=== PATIENT | male | born 1930 | race Caucasian/White ===

== ENCOUNTER 2016-08-21 16:42 | Emergency (ER) | payer MEDICARE, BC ==
--- NOTE | 2016-08-21 17:06 | Emergency Department Record ---
History of Present Illness - General Chief Complaint: Laceration(s) Stated Complaint: LAC ON R LEG Time Seen by Provider: 08/21/16 17:00 Source: Patient, Family Mode of Arrival: Wheelchair Limitations: No limitations - History of Present Illness Initial Commments: 86 yo male presents with 2 skin tears to the RLE from Saturday. he has had some continued bleeding from one site and clear drainage from the other. No fevers. No pus. No redness or abnormal warmth. No fevers or chills. He has chronic lower extremity edema. Onset/Timin -: Days(s) Extremity Location: Right: Lower leg Place: Home Context: Accidental Associated Symptoms: None Treatments Prior to Arrival: Bandage - [place] Coma Scale Eye Response: (4) Open spontaneously Motor Response: (6) Obeys commands Verbal Response: (5) Oriented [place] Total: 15 - Related Data Hx Tetanus Toxoid Vaccination: No Home Medications Medication Instructions Recorded Confirmed Last Taken Albuterol Sulfate [Ventolin Hfa] 8 gm INH Q8HR 10/10/13 08/21/16 08/21/16 Alendronate Sodium 10 mg PO DAILY 10/10/13 08/21/16 08/21/16 Aspirin Chewable 81 mg PO DAILY 10/10/13 08/21/16 08/21/16 Cetirizine HCl [Zyrtec] 10 mg PO ASDIR PRN 10/10/13 08/21/16 08/21/16 Cholecalciferol (Vitamin D3) 1,000 unit PO DAILY 10/10/13 08/21/16 08/21/16 [Vitamin D3] Dextran 70/Hypromellose 15 ml OP BID 10/10/13 08/21/16 08/21/16 [Artificial Tears Eye Drops] Fluticasone Propionate [Flonase] 16 gm NS DAILY 10/10/13 08/21/16 08/21/16 Furosemide [Lasix] 20 mg PO DAILY 10/10/13 08/21/16 08/21/16 Ipratropium [place] [Atrovent Hfa] 12.9 gm IH DAILY 10/10/13 08/21/16 08/21/16 Ipratropium [place] [Atrovent] 15 ml NS BID 10/10/13 08/21/16 08/21/16 Ipratropium/Albuterol [Duoneb] 3 ml IH Q4HR 10/10/13 08/21/16 08/21/16 Losartan Potassium [Cozaar] 50 mg PO DAILY 10/10/13 08/21/16 08/21/16 Omeprazole [Prilosec] 40 mg PO DAILY 10/10/13 08/21/16 08/21/16 Pravastatin Sodium [Pravachol] 80 mg PO DAILY 10/10/13 08/21/16 08/21/16 Ubidecarenone/Vitamin E Mixed 300 mg PO DAILY 10/10/13 08/21/16 08/21/16 [Coenzyme Q10 200 mg Caps] Fluticasone Propionate [Flovent 12 gm IH BIDINS 10/11/13 08/21/16 08/21/16 Hfa] Previous Rx's Medication Instructions Recorded Levofloxacin [Levaquin] 500 mg PO DAILY #7 ml 10/12/13 Prednisone [Prednisone 10Mg] 10 mg PO DAILY #30 tab 10/12/13 Allergies Allergy/AdvReac Type Severity Reaction Status Date / Time Beta-Blockers Allergy Unknown DIFFICULTY Verified 08/21/16 16:53 (Beta-Adrenergic Bloc BREATHING [BETA-BLOCKERS (BETA-ADRENERGIC BLOC] Calcium Channel Blocking Allergy Unknown HYPERSENSIT Verified 08/21/16 16:53 Agent Dilt IVITY [CALCIUM CHANNEL BLOCKING AGENTS-CY] diltiazem [DILTIAZEM] Allergy Unknown HYPERSENSIT Verified 08/21/16 16:53 IVITY tiotropium bromide Allergy BODY ACHES Verified 08/21/16 16:53 [From Spiriva with HandiHaler] lisinopril AdvReac ABDOMINAL Verified 08/21/16 16:55 PAIN salmeterol xinafoate AdvReac RAPID Verified 08/21/16 16:53 [From Serevent] HEART RATE simvastatin AdvReac general Verified 08/21/16 16:55 fatigued verapamil AdvReac low blood Verified 08/21/16 16:55 pressure Travel Screening - Travel/Exposure Within Last 30 Days Have you traveled within the last 30 days?: No Review of Systems Constitutional: Denies: Chills, Fever, Weakness Eyes: Denies: Eye discharge ENT: Denies: Congestion, Throat pain Respiratory: Reports: Wheezes (chronic). Denies: Cough, Dyspnea Cardiovascular: Reports: As per HPI, Edema. Denies: Chest pain, Palpitations, Syncope Endocrine: Denies: Fatigue Gastrointestinal: Denies: Abdominal pain, Diarrhea, Nausea, Vomiting Genitourinary: Denies: Hematuria Musculoskeletal: Denies: Arthralgia, Back pain, Myalgia Skin: Denies: Bruising, Change in color, Rash Neurological: Denies: Headache Psychiatric: Denies: Anxiety Hematological/Lymphatic: Denies: Blood Clots, Easy bleeding, Easy bruising Past Medical History - SOCIAL HISTORY Smoking Status: Former smoker Alcohol Use: None Drug Use: None - RESPIRATORY Hx Respiratory Disorders: Yes Hx COPD: Yes - CARDIOVASCULAR Hx Cardio Disorders: Yes Hx Abnormal EKG: Yes Hx Cardiac Cath: Yes (2008) Hx CHF: Yes Hx Heart Attack: Yes Hx Hypertension: Yes Hx Irregular Heartbeat: Yes (SVT, PVCs) - NEURO Hx Neuro Disorders: No - GI Hx GI Disorders: Yes Hx Diverticulitis: Yes Hx Pancreatitis: Yes - Hx Genitourinary Disorders: No - ENDOCRINE Hx Endocrine Disorders: No - MUSCULOSKELETAL Hx Musculoskeletal Disorders: Yes Hx Osteoporosis: Yes - PSYCH Hx Psych Problems: No - HEMATOLOGY/ONCOLOGY Hx Hematology/Oncology Disorders: Yes Hx Cancer: Yes (Squamous - lip) Hx Chemotherapy: No Hx Radiation Therapy: Yes Family Medical History Any Significant Family History?: Yes Hx Cancer: Mother Hx Dementia: Brother/Sister Hx HTN: Father, Mother Physical Exam - General General Appearance: Alert, Oriented x3, Cooperative, No acute distress Limitations: No limitations - Head Head exam: Normal inspection - Eye Eye exam: Normal appearance - ENT ENT exam: Normal exam Ear exam: Normal external inspection Nasal Exam: Normal inspection Mouth exam: Normal external inspection - Neck Neck exam: Normal inspection - Cardiovascular Cardiovascular Exam: Regular rate, Normal rhythm, Normal heart sounds - Rectal Rectal exam: Deferred - exam: Deferred - Extremities Extremities exam: Pedal edema (bialteral with chronic skin changes). negative: Normal inspection Image of Full Body: 1 - 2cm superficial skin tear, no pus, no erythema 2 - 1cm superficial skin tear with slight oozing - Neurological Neurological exam: Alert, Oriented X3 - Psychiatric Psychiatric exam: Normal affect, Normal mood - Skin Skin exam: Other (skin tears as noted above) Course Vital Signs 08/21/16 16:45 Temperature 97.4 F L Pulse Rate 55 L Respiratory 20 Rate Blood Pressure 137/92 Pulse Ox 90 L - Reevaluation(s) Reevaluation #1: Both wounds were cleaned and irrigated The 2cm skin tear was brought together with steristrips with good results The 1cm skin tear had a patch of gelfoam placed and steristrip to secure it in place Tolerated well Home instructions provided as well and follow up and reasons to return to the ED 08/21/16 17:03 Disposition Disposition: Discharge Clinical Impression: Skin tear Disposition: Home, Self-Care Condition: (1) Good Instructions: Skin Tear (ED) Additional Instructions: Call your doctor for close follow up Return if you have pain, redness, pus, fever or concerns Leave the steristrip on for 5 to 7 days and the patch on 2 days. Forms: Patient Portal Access Time of Disposition: 17:06
== END 2016-08-21 17:22 | disposition home or self-care (01) ==
LOC: ER 16:42
DX: S80.811A Abrasion, right lower leg, initial encounter (principal); W22.8XXA Striking against or struck by other objects, initial encounter; Y92.009 Unspecified place in unspecified non-institutional (private) residence as the place of occurrence of the external cause
CPT/HCPCS: 99283

== ENCOUNTER 2017-07-26 15:49 | Observation (INO) | payer MEDICARE, BC ==
[2017-07-26 16:51] LABS: BASO % 0.3 % (0-6); EOS % 1.3 % (0-6); GRAN % 71.6 % (47-80); HEMATOCRIT 49.4 % (42.0-52.0); HEMOGLOBIN 16.9 gm/dl (14.0-18.0); LYMPH % 17.6 % (16-45); MEAN CELL VOLUME 96.1 fl (81-97); MEAN CORPUSCULAR HEMOGLOBIN 32.9 pg (27-33); MEAN CORPUSCULAR HGB CONC 34.2 g/dl (32-36); MONO % 9.2 % (0-9); PLATELET COUNT 202 K/uL (130-400); RED BLOOD COUNT 5.14 M/uL (4.40-5.70); RED CELL DISTRIBUTION WIDTH 13.7 % (11.5-14.5); WHITE BLOOD COUNT W/O DIFF 11.2 K/uL (4.2-12.2)
--- NOTE | 2017-07-26 17:33 | Emergency Department Record ---
History of Present Illness - General Chief Complaint: Syncope Stated Complaint: FALL INJURY Time Seen by Provider: 07/26/17 16:17 Source: Patient, Family Mode of Arrival: Ambulatory Limitations: No limitations - History of Present Illness Initial Comments: pt had a syncopal spell this afternoon. he said he was standing and felt a little lightheaded and the next thing he knew he was on the floor after hitting his head and hurting his r ribs. his said he woke up immediately and had no shaking of the extremities. he c/o pain in his head and r ribs Complaint: Loss of consciousness Onset/Timin -: Hour(s) Prodromal Symptoms: Lightheaded Description of Event: Other -: Second(s) Witnessed: Yes - by bystander Injuries Sustained Associated with Event: Head Current Symptoms: Headache, Other Treatments Prior to Arrival: None - [place] Coma Scale Eye Response: (4) Open spontaneously Motor Response: (6) Obeys commands Verbal Response: (5) Oriented [place] Total: 15 - Related Data Home Medications Medication Instructions Recorded Confirmed Last Taken Docusate Sodium [Colace] 100 mg PO DAILY 07/26/17 07/26/17 Unknown Fexofenadine HCl [Mónica Allergy] 180 mg PO DAILY 07/26/17 07/26/17 1 Day Ago ~07/25/17 Potassium Chloride [Klor-Con] 5 meq PO DAILY 07/26/17 07/26/17 1 Day Ago ~07/25/17 Simethicone [Gas-X] 125 mg PO QID PRN 07/26/17 07/26/17 Unknown Zolpidem Tartrate [Ambien] 10 mg PO QHS 07/26/17 07/26/17 1 Day Ago ~07/25/17 Allergies Allergy/AdvReac Type Severity Reaction Status Date / Time Beta-Blockers Allergy Unknown DIFFICULTY Verified 07/26/17 16:27 (Beta-Adrenergic Bloc BREATHING [BETA-BLOCKERS (BETA-ADRENERGIC BLOC] Calcium Channel Blocking Allergy Unknown HYPERSENSIT Verified 07/26/17 16:27 Agent Dilt IVITY [CALCIUM CHANNEL BLOCKING AGENTS-CY] diltiazem [DILTIAZEM] Allergy Unknown HYPERSENSIT Verified 07/26/17 16:27 IVITY tiotropium bromide Allergy BODY ACHES Verified 07/26/17 16:27 [From Spiriva with HandiHaler] lisinopril AdvReac ABDOMINAL Verified 07/26/17 16:27 PAIN salmeterol xinafoate AdvReac RAPID Verified 07/26/17 16:27 [From Serevent] HEART RATE simvastatin AdvReac general Verified 07/26/17 16:27 fatigued verapamil AdvReac low blood Verified 07/26/17 16:27 pressure Travel Screening - Travel/Exposure Within Last 30 Days Have you traveled within the last 30 days?: No - Travel/Exposure Within Last Year Have you traveled outside the [place] in the last year?: No - Additonal Travel Details Have you been exposed to anyone with a communicable illness?: No - Travel Symptoms Symptom Screening: None Review of Systems Reviewed: No additional complaints except as noted below Constitutional: Reports: As per HPI. Denies: Chills, Fever, Malaise, Night sweats, Weakness, Weight change Eyes: Reports: As per HPI. Denies: Eye discharge, Eye pain, Photophobia, Vision change ENT: Reports: As per HPI. Denies: Congestion, Dental pain, Ear pain, Epistaxis , Hearing loss, Throat pain Respiratory: Reports: As per HPI. Denies: Cough, Dyspnea, Hemoptysis, Stridor, Wheezes Cardiovascular: Reports: As per HPI, Palpitations. Denies: Arrhythmia, Chest pain, Dyspnea on exertion, Edema, Murmurs, Orthopnea, Paroxysmal nocturnal dyspnea, Rheumatic Fever, Syncope Endocrine: Reports: As per HPI. Denies: Fatigue, Heat or cold intolerance, Polydipsia, Polyuria Gastrointestinal: Reports: As per HPI. Denies: Abdominal pain, Constipation, Diarrhea, Hematemesis, Hematochezia, Melena, Nausea, Vomiting Genitourinary: Reports: As per HPI. Denies: Dysuria, Frequency, Hematuria, Incontinence, Retention, Testicular pain, Testicular mass, Urgency Musculoskeletal: Reports: As per HPI. Denies: Arthralgia, Back pain, Gout, Joint swelling, Myalgia, Neck pain Skin: Reports: As per HPI. Denies: Bruising, Change in color, Change in hair/ nails, Lesions, Pruritus, Rash Neurological: Reports: As per HPI. Denies: Abnormal gait, Confusion, Headache, Numbness, Paresthesias, Seizure, Tingling, Tremors, Vertigo, Weakness Psychiatric: Reports: As per HPI. Denies: Anxiety, Auditory hallucinations, Depression, Homicidal thoughts, Suicidal thoughts, Visual hallucinations Hematological/Lymphatic: Reports: As per HPI. Denies: Anemia, Blood Clots, Easy bleeding, Easy bruising, Swollen glands Past Medical History - SOCIAL HISTORY Smoking Status: Former smoker Alcohol Use: None Drug Use: None - RESPIRATORY Hx Respiratory Disorders: Yes Hx COPD: Yes - CARDIOVASCULAR Hx Cardio Disorders: Yes Hx Abnormal EKG: Yes Hx Cardiac Cath: Yes (2008) Hx CHF: Yes Hx Heart Attack: Yes Hx Hypertension: Yes Hx Irregular Heartbeat: Yes (SVT, PVCs) - NEURO Hx Neuro Disorders: No - GI Hx GI Disorders: Yes Hx Diverticulitis: Yes Hx Pancreatitis: Yes - Hx Genitourinary Disorders: No - ENDOCRINE Hx Endocrine Disorders: No Hx Diabetes: No Hx Thyroid Disease: No - MUSCULOSKELETAL Hx Musculoskeletal Disorders: Yes Hx Osteoporosis: Yes - PSYCH Hx Psych Problems: No - HEMATOLOGY/ONCOLOGY Hx Hematology/Oncology Disorders: Yes Hx Cancer: Yes (Squamous - lip) Hx Chemotherapy: No Hx Radiation Therapy: Yes Family Medical History Any Significant Family History?: Yes Hx Cancer: Mother Hx Dementia: Brother/Sister Hx HTN: Father, Mother Physical Exam - General General Appearance: Alert, Oriented x3, Cooperative, Mild distress - Head Head exam: Normal inspection Head exam detail: Abrasion, Contusion, Hematoma, Laceration - Eye Eye exam: Normal appearance, PERRL, EOMI Pupils: Normal accommodation - ENT ENT exam: Normal exam, Mucous membranes moist, Normal external ear exam, Normal orophraynx Ear exam: Normal external inspection. negative: External canal tenderness Nasal Exam: Normal inspection. negative: Discharge, Sinus tenderness Mouth exam: Normal external inspection, Tongue normal Teeth exam: Normal inspection. negative: Dental caries Throat exam: Normal inspection. negative: Tonsillar erythema, Tonsillar exudate - Neck Neck exam: Normal inspection, Full ROM. negative: Tenderness - Respiratory Respiratory exam: Normal lung sounds bilaterally. negative: Respiratory distress - Cardiovascular Cardiovascular Exam: Regular rate, Normal rhythm, Normal heart sounds - GI/Abdominal GI/Abdominal exam: Soft, Normal bowel sounds. negative: Tenderness - Rectal Rectal exam: Deferred - exam: Deferred - Extremities Extremities exam: Full ROM, Normal capillary refill, Tenderness Image of Full Body: 1 - ecchymosis 2 - ecchymosis 3 - laceration - Back Back exam: Reports: Normal inspection, Full ROM. Denies: Muscle spasm, Rash noted, Tenderness - Neurological Neurological exam: Alert, Normal gait, Oriented X3, Reflexes normal - Psychiatric Psychiatric exam: Normal affect, Normal mood - Skin Skin exam: Dry, Intact, Normal color, Warm Course Vital Signs 07/26/17 16:18 Temperature 97.5 F L Pulse Rate 68 Respiratory 20 Rate Blood Pressure 136/110 Pulse Ox 92 L Medical Decision Making - Lab Data Result diagrams: 07/26/17 15:35 07/26/17 15:35 Lab Results 07/26/17 Range/Units 15:35 WBC 11.2 (4.2-12.2) K/uL RBC 5.14 (4.40-5.70) M/uL Hgb 16.9 (14.0-18.0) gm/dl Hct 49.4 (42.0-52.0) % MCV 96.1 (81-97) fl MCH 32.9 (27-33) pg MCHC 34.2 (32-36) g/dl RDW 13.7 (11.5-14.5) % Plt Count 202 (130-400) K/uL MPV 10.0 (7.4-10.4) fl Gran % 71.6 (47-80) % Lymphocytes % 17.6 (16-45) % Monocytes % 9.2 H (0-9) % Eosinophils % 1.3 (0-6) % Basophils % 0.3 (0-6) % Disposition Disposition: Admit Clinical Impression: PVC's (premature ventricular contractions), Laceration Syncope Qualifiers: Syncope type: unspecified Qualified Code(s): R55 - Syncope and collapse Head injury due to trauma Qualifiers: Encounter type: initial encounter Qualified Code(s): S09.90XA - Unspecified injury of head, initial encounter Disposition: Still a Patient at [facility] Decision to Admit: Admit from ER Decision to Admit Date: 07/26/17 Decision to Admit Time: 20:48 Forms: Patient Portal Access Quality - Quality Measures Quality Measures: N/A - Blood Pressure Screening Does Patient Have Any of the Following: Active Dx of HTN Blood Pressure Classification: Hypertensive Reading Systolic Measurement: 136 Diastolic Measurement: 110 Screening for High Blood Pressure: Patient Exclusion, Hx of HTN [G9744] Laceration - Head - Time Out Informed consent:: Informed consent obtained Confirmed first & last name, , procedure, correct site?: Yes - Location Location of laceration:: Left Laceration located on:: Face Length of laceration:: 3 Length of laceration:: cm Face/Head: 1 - 3cm lac - Clean and Prep Laceration cleaning method:: Cleansed Laceration cleaning agent:: Normal Saline - Topical Anesthetic Lidocaine dose:: 1 mL Lidocaine used:: 1% - Medication Medicated for procedure?: No - Procedural Detail Tissue detail:: Torn Foreign body in the wound?: No Undermining was preformed?: No Stent applied?: No [place] applied?: No Total number of poli:: 5 (simple interrupted sutures)
[2017-07-26 18:13] LABS: ALKALINE PHOSPHATASE 53 U/L (40-129); ALT/SGPT 13 U/L (<41); AST/SGOT 19 U/L (10.0-50.0); BLOOD UREA NITROGEN 23 mg/dL (8-23); CREATININE 0.6 mg/dL (0.7-1.2); EST GLOMERULAR FILTRATION RATE > 60 mL/min; GLUCOSE,RANDOM 93 mg/dL (74-109); TOTAL PROTEIN 6.6 g/dL (6.6-8.7)
[2017-07-26 18:15] LABS: CKMB 5.5 ng/mL (<6.73)
[2017-07-26 18:18] LABS: BILIRUBIN,DIRECT < 0.2 mg/dL (0-0.3)
[2017-07-26 19:04] LABS: URINE APPEARANCE CLEAR; URINE BILIRUBIN NEGATIVE (NEGATIVE); URINE BLOOD NEGATIVE (NEGATIVE); URINE COLOR YELLOW; URINE GLUCOSE (UA) NEGATIVE (NEGATIVE); URINE KETONE NEGATIVE (NEGATIVE); URINE LEUKOCYTE ESTERASE NEGATIVE (NEGATIVE); URINE NITRITE NEGATIVE (NEGATIVE); URINE PROTEIN NEGATIVE (NEGATIVE); URINE UROBILINOGEN 0.2 E.U./dL (0.20 - 1.00)
[2017-07-26] MEDS ORDERED: ACETAMINOPHEN 325 MG TAB PO PRN (21:54)
[2017-07-26] MEDS ORDERED: ATORVASTATIN 20 MG TABLET PO SCH (22:00)
[2017-07-26] MEDS ORDERED: ALBUTEROL HFA 8 GM INHALER INH SCH (22:00)
[2017-07-26] MEDS ORDERED: FLUTICASONE PROPIONATE IH SCH (22:00)
[2017-07-26] MEDS ORDERED: LOSARTAN POTASSIUM 25 MG TABLET PO SCH (23:30)
[2017-07-27] MEDS ORDERED: PANTOPRAZOLE SODIUM 40 MG TABLET PO SCH (07:00)
--- NOTE | 2017-07-27 07:50 | Discharge Note ---
VTE H&P Assessment - Risk for VTE Risk for VTE: Yes Risk Level: Moderate Risk Assessment Date: 07/27/17 Risk Assessment Time: 07:49 VTE Orders Placed or Will Be Placed: Yes Discharge Medications - Discharge Medications Home Medications: Ambulatory Orders Albuterol Sulfate [Ventolin Hfa] 2 puff INH Q8HR 10/10/13 [Last Taken 1 Day Ago ~07/25/17] Aspirin Chewable 81 mg PO DAILY 10/10/13 [Last Taken 1 Day Ago ~07/25/17] Cholecalciferol (Vitamin D3) [Vitamin D3] 1,000 unit PO DAILY 10/10/13 [Last Taken 1 Day Ago ~07/25/17] Dextran 70/Hypromellose [Artificial Tears Eye Drops] 15 ml OP BID 10/10/13 [ Last Taken 1 Day Ago ~07/25/17] Fluticasone Propionate [Flonase] 1 spray NS DAILY 10/10/13 [Last Taken 1 Day Ago ~07/25/17] Furosemide [Lasix] 20 mg PO DAILY 10/10/13 [Last Taken 1 Day Ago ~07/25/17] Ipratropium [place] [Atrovent Hfa] 4 puff IH TID 10/10/13 [Last Taken 1 Day Ago ~07/25/17] Ipratropium [place] [Atrovent] 2 spray NS BID 10/10/13 [Last Taken 1 Day Ago ~] Ipratropium/Albuterol [Duoneb] 3 ml IH DAILY 10/10/13 [Last Taken 1 Day Ago ~] Losartan Potassium [Cozaar] 25 mg PO DAILY 10/10/13 [Last Taken 1 Day Ago ~07/25] Omeprazole [Prilosec] 40 mg PO DAILY 10/10/13 [Last Taken 1 Day Ago ~07/25/17] Pravastatin Sodium [Pravachol] 80 mg PO DAILY 10/10/13 [Last Taken 1 Day Ago ~] Ubidecarenone/Vitamin E Mixed [Coenzyme Q10 200 mg Caps] 300 mg PO DAILY [Last Taken 1 Day Ago ~07/25/17] Fluticasone Propionate [Flovent Hfa] 2 puff IH BID 10/11/13 [Last Taken 1 Day Ago ~07/25/17] Docusate Sodium [Colace] 100 mg PO DAILY 07/26/17 [Last Taken Unknown] Fexofenadine HCl [Mónica Allergy] 180 mg PO DAILY 07/26/17 [Last Taken 1 Day Ago ~07/25/17] Potassium Chloride [Klor-Con] 5 meq PO DAILY 07/26/17 [Last Taken 1 Day Ago ~] Simethicone [Gas-X] 125 mg PO QID PRN 07/26/17 [Last Taken Unknown] Zolpidem Tartrate [Ambien] 10 mg PO QHS 07/26/17 [Last Taken 1 Day Ago ~07/25/17 ] Discharge Note - Date Date of Discharge Note: 07/27/17 Disposition: Home, Self-Care Condition: (1) Good Additional Instructions: follow up with Dr. Atkinson in one week wear holtor monitor Drink more water Referrals: KANU ATKINSON [Primary Care Provider] - Forms: Patient Portal Access Activity at Discharge: Increase Activity as Tolerated Diet at Discharge: Low Salt Diet
[2017-07-27] MEDS ORDERED: FLUTICASONE 200 MCG INH SCH (10:00)
[2017-07-27] MEDS ORDERED: FUROSEMIDE 20 MG TABLET PO SCH (10:00)
[2017-07-27] MEDS ORDERED: ASPIRIN 81 MG CHEWABLE TABLET PO SCH (10:00)
[2017-07-27] MEDS ORDERED: ENOXAPARIN 30 MG/0.3 ML SYR SQ SCH (10:00)
[2017-07-27] MEDS ORDERED: DOCUSATE SODIUM 100 MG CAPSULE PO SCH (10:00)
[2017-07-27] MEDS ORDERED: IPRATROPIUM/ALBUTEROL (0.5MG/3MG) NEB INH SCH (10:00)
[2017-07-27] MEDS ORDERED: POTASSIUM CHLORIDE 10 MEQ TAB PO SCH (10:00)
[2017-07-27] MEDS: IPRATROPIUM/ALBUTEROL (0.5MG/3MG) NEB INH SCH ×2 (10:11→14:58)
--- NOTE | 2017-07-27 16:14 | CT SCAN REPORT ---
DATE: 07/26/2017 at 4:56 p.m. EXAM: HEAD CT SCAN WITHOUT CONTRAST. HISTORY: The patient fell with a syncopal episode and hit his head. TECHNIQUE: Axial CT scan of the head was performed without intravenous contrast. COMPARISON: None. ENCOUNTER: Initial. FINDINGS: No definite acute intracranial hemorrhage identified. No focal mass effect or midline shift apparent. Moderate generalized atrophy with some chronic-appearing deep white matter changes, nonspecific but likely representing some chronic small-vessel deep white matter ischemic disease. No definite acute infarct or intracranial mass lesion seen. Some mild soft tissue swelling in the scalp of the left frontoparietal region. No definite underlying calvarial fracture identified. Probable small cyst or polyp on the medial wall of the right maxillary antrum. IMPRESSION: 1. GENERALIZED ATROPHY WITH CHRONIC-APPEARING DEEP WHITE MATTER CHANGES. 2. SOME SOFT TISSUE SWELLING ON THE SCALP OF THE LEFT FRONTOPARIETAL REGION. 3. NO ACUTE INTRACRANIAL HEMORRHAGE OR FOCAL MASS EFFECT EVIDENT. JOB NUMBER: [id number] MTDD
--- NOTE | 2017-07-28 10:39 | RADIOLOGY REPORT ---
DATE: 07/26/2017 at 5:11 p.m. EXAM: RIGHT RIBS WITH PA CHEST. HISTORY: The patient fell today with pain in the right lower ribs. TECHNIQUE: AP and oblique views of the right ribs and PA of the chest. COMPARISON: No prior rib series. A two-view chest x-ray dated 10/10/2013. ENCOUNTER: Initial. FINDINGS: Diffuse osteopenia is seen consistent with osteoporosis. This somewhat limits evaluation of the ribs. However, no definite fracture of the right ribs is identified. On the chest x-ray, the patient is seen to be postoperative sternotomy, probably with abandoned epipericardial pacer wires. The lungs also appear hyperinflated suggesting chronic obstructive pulmonary disease, probably with some bullous disease in the upper lungs, and some mild fibrosis in the bases. No definite pneumothorax or pleural effusion evident. Calcification and torsion of the aorta. IMPRESSION: 1. OSTEOPOROSIS. 2. NO DEFINITE RIGHT RIB FRACTURE IDENTIFIED. 3. HYPERINFLATION CONSISTENT WITH CHRONIC OBSTRUCTIVE PULMONARY DISEASE. 4. POSTOPERATIVE STERNOTOMY. JOB NUMBER: [id number] [facility]
--- NOTE | 2017-07-28 11:27 | CT ANGIOGRAM REPORT ---
DATE: 07/26/2017 at 7:31 p.m. EXAM: CT ANGIOGRAM OF THE CHEST FOR PULMONARY EMBOLUS WITH POSTPROCESSING. HISTORY: Syncope with a high D-dimer. Possible pulmonary embolus. TECHNIQUE: CT angiogram of the chest performed following the intravenous administration of 90 mL of Omnipaque 350 as the intravenous contrast. Postprocessing on an independent workstation was performed with multiple 3D maximum-intensity projection series obtained. COMPARISON: No prior chest CT. Comparison is made with the chest x-ray as part of the rib series from today. FINDINGS: No definite pulmonary embolus identified. No thoracic aortic aneurysm or dissection identified. The patient is postoperative sternotomy. Coronary artery calcification is present. The posterior-most aspect of the lower hemithoraces is not included on the field of view, but as visualized no pleural effusion is seen and no pericardial effusion is evident. No hilar or mediastinal adenopathy is identified. The patient is probably postoperative cholecystectomy, and there is some air in the liver which is presumably within the biliary tree related to this surgery. Clinical correlation to confirm cholecystectomy is suggested as the gallbladder fossa is only barely included on the lower-most image. Centrilobular emphysema is present. A 4.4 mm nodule in the right upper lobe is seen in image 55 of 135. There are a couple of other tinier nodules seen scattered about the right lung. There is also a small nodule in the left upper lobe approximately 4.4 mm in size on image 43 of 135. Follow-up chest CT in six months' time is suggested to reassess. There is a small focus of pleural- based infiltrate about 16 mm in size along the right lower lung laterally. This has progressed from a small, faint patch of alveolar density on the prior abdomen CT of 04/03/2016. This is nonspecific and could be inflammatory or neoplastic. Short-term follow-up chest CT in three months' time might be useful to reassess this. IMPRESSION: 1. NO DEFINITE PULMONARY EMBOLUS IDENTIFIED. 2. POSTOPERATIVE STERNOTOMY WITH CORONARY ARTERY CALCIFICATION. 3. CENTRILOBULAR EMPHYSEMA. 4. AN APPROXIMATELY 16 MM PLEURAL-BASED OPACITY IN THE RIGHT LOWER LUNG LATERALLY WHICH HAS PROGRESSED FROM 04/03/2016, NONSPECIFIC. RECOMMEND A FOLLOW -UP CHEST CT IN THREE MONTHS' TIME. 5. SOME SMALL NODULES NOTED ABOVE. 6. PROBABLE CHOLECYSTECTOMY WITH SOME POSTOPERATIVE AIR IN THE BILIARY TREE. CORRELATION TO CONFIRM PRIOR CHOLECYSTECTOMY SUGGESTED. JOB NUMBER: [id number] MTDD
--- NOTE | 2017-07-29 12:30 | History and Physical Report ---
DATE OF ADMISSION: 07/26/2017 CHIEF COMPLAINT/HISTORY OF CHIEF COMPLAINT: This 87-year-old male had a syncopal episode at home while cooking, in front of the microwave. He stated he felt dizzy prior to going down. His heard him fall and immediately came to his side. He was awake and talking immediately. No signs of seizure. He did hit his head and his right ribs, had a laceration on his head. He was evaluated in the emergency room by Dr. Pickens; EKG showing some PVCs. No acute changes. Cardiac labs: The troponin was in the indeterminate range at 0.016 and it went down the 2nd draw at 0.013. CK-MB also was 5.5 initially, low normal, and still normal at 5.8 at 10 p.m. BUN 23, creatinine 0.6, D-dimer was slightly elevated at 1.5. He had a CTA which was negative for PE. He has a spot on his lung so need to be rescanned in 3 months. Rib x-rays were negative for fractures. Head CT was negative; no acute changes. PAST MEDICAL HISTORY: COPD, CHF, cardiomyopathy. He has had previous MIs, hypertension. 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 Hypercholesterolemia, PAST SURGICAL HISTORY:A quadruple bypass 1987. In 2000 a triple A repair. Cholecystitis in 2011. Pancreatic bile duct widening in 2012. Cardiac ablation, 2008 x3. CURRENT MEDICATIONS: Medications on admission: 1. Ambien 10 mg at h.s. 2. Simethicone 125 q.i.d. p.r.n. 3. Potassium chloride 5 mEq daily. 4. Colace 100 mg daily. 5. Mónica 180 daily. 6. CoQ10 300 mg a day. 7. Pravastatin 80 mg a day. 8. Omeprazole 40 mg a day. 9. Losartan 25 mg a day. 10. DuoNeb q.i.d. 11. Lasix 20 mg a day. 12. Flovent 2 puffs b.i.d. 13. Flonase 1 spray in his nostrils daily. 14. Vitamin D3 1 a day, 1000 units. 15. Aspirin 81 mg a day. 16. Ventolin rescue inhaler 2 puffs q.4 hours p.r.n. ALLERGIES: VERAPAMIL caused low blood pressure. SIMVASTATIN caused generalized fatigue. SEREVENT caused a rapid heart rate. SPIRIVA caused body aches. CALCIUM CHANNEL BLOCKERS caused some sensitivities. BETA BLOCKERS, difficulty breathing. SOCIAL HISTORY: He is an ex-smoker. He quit in 1987. No alcohol or drug use. FAMILY HISTORY: Mother had cancer. Brother and sister had dementia. Hypertension in father and mother. SYSTEMS REVIEW: HEENT: No upper respiratory infection symptoms, cough, cold or congestion. CARDIOVASCULAR: See chief complaint. He had dizziness before syncope. No chest pain or palpitations. RESPIRATORY: No cough, cold or congestion. GASTROINTESTINAL: No nausea, vomiting, diarrhea, black stools or bloody stools. GENITOURINARY: No dysuria, hematuria, frequency or burning on urination. MUSCULOSKELETAL: No joint or bone abnormalities. NEUROLOGIC: No confusion. Able to ambulate without difficulties. ENDOCRINE: No diabetes or thyroid disease. INTEGUMENT: No skin rashes, ulcer, change in moles or yellow skin. PHYSICAL EXAMINATION: GENERAL: Height is 5 foot 9. Weight is 140 pounds. VITAL SIGNS: Temperature is 97.9. Pulse is 61. Blood pressure 118/68. Respiratory rate is18. Pulse ox 95% on room air. . HEENT: Pupils are equal, round and reactive to light and accomodation. Extraocular muscles intact. Throat is clear. Nose is clear. Tympanic membranes are vazquez. NECK: Supple. No jugular venous distention. No hepatojugular reflux. No carotid bruits. Thyroid smooth. CARDIOVASCULAR: Regular rate and rhythm without murmurs, clicks, rubs or gallops. Occasional PVCs on the monitor. RESPIRATORY: Breath sounds equal bilaterally. ABDOMEN: Soft, nontender, no hepatosplenomegaly, no masses, no tenderness. Bowel sounds are active. There is pain when palpating the right ribcage from his fall. EXTREMITIES: No pitting edema. No cyanosis. No clubbing. Full range of motion. Peripheral pulses good. BREASTS: Normal male breasts. GENITALIA: Deferred. RECTAL: Deferred. NEUROLOGIC: Cranial nerves II through XII intact. No gross defects. Sensation normal. Strength normal. Deep tendon reflexes equal bilaterally. Babinski is negative. MENTAL STATUS: Alert and oriented x3. IMPRESSION: 1. Vasovagal syncope. 2. Congestive heart failure, stable. 3. Chronic obstructive pulmonary disease, stable. 4. Cardiac arrhythmias, PVCs. PLAN: I will place the patient on a Holter Monitor and have him followup with Dr. Johny Atkinson. Patient has been stable throughout the night and groundwater monitoring technician is showing no malignant arrhythmias, and he is up and moving around nicely. He does have a laceration on his head which has been repaired in the emergency department. He has some abrasions and lacerations on the skin. The skin is very thin and tears very easily. When they put an EKG patch on and took the patch off, the skin was actually torn by doing that. KOFI
--- NOTE | 2017-07-29 12:30 | Discharge Summary ---
DATE: 07/27/2017 Observation patient. DISCHARGE DIAGNOSES: 1. Vasovagal syndrome. 2. Dizziness. 3. History of congestive heart failure, stable. 4. History of chronic obstructive pulmonary disease, stable. 5. Premature ventricular contractions, cardiac arrhythmia. ATTENDING PHYSICIAN: Felice Samuels DO REASON FOR HOSPITALIZATION: Syncope. This patient was cooking at the microwave when he felt dizzy. He went down hitting his head and his right rib cage. His got to him immediately, 30 seconds, and he was awake, talking, no seizure activity, no blueness or difficulty breathing. He has been following recently, more so in the last couple of weeks. SIGNIFICANT FINDINGS: EKG showing no acute changes with some PVCs. Cardiac monitoring. No malignant arrhythmias identified through the night. The CK-MB was negative x2. The troponin I was trending down from an indeterminate spot in the emergency department. A D-dimer was elevated slightly and he had a CTA which was negative for PE. He does have a spot on his lungs that needs to be rescanned in 3 months per radiologist's recommendation. WBCs 11,200, hemoglobin 16.9. Sodium 139, potassium 3.8, chloride 97. Urine was negative. THERAPY PROVIDED: The patient was monitored throughout the night. Neuro checks were done. He is neurologically intact at this time. X-rays done through the emergency department. Head CT showing no acute changes. Ribs negative for fractures. CTA negative for PE. EKG with no acute changes with some PVCs. CONDITION ON DISCHARGE: Much improved. DISCHARGE INSTRUCTIONS: Follow up with Dr. Johny Atkinson in 1 week. Continue his home medications. Drink the amount of water he has been told to drink. No more than 8 glasses a day. A Holter monitor will be placed on him so we can watch for any malignant arrhythmias while ambulating and doing his own activities. CC: Dr. Johny Atkinson [facility]ALSelwyn
--- NOTE | 2017-08-01 17:16 | Holter Monitor Report ---
DATE OF TEST: 07/26/17 PRE-PROCEDURE DIAGNOSIS: SYNCOPAL EPISODE. PROCEDURE: This 24-hour Holter is performed. During this 24-hour period, the patient remained in sinus rhythm with multiple PACs and PVCs with a few episodes of couplets and about five episodes of unsustained V-tach with 3-5 beats. There were no symptoms during this 24-hour period. SUMMARY: THE HOLTER IS REMARKABLE FOR MULTIPLE PACs, PVCs, WITH A FEW EPISODES OF COUPLETS AND UNSUSTAINED V-TACH. CLINICAL CORRELATION NEEDED. JOB NUMBER: [id number] [facility]
== END 2017-07-27 10:48 | disposition home or self-care (01) ==
LOC: ER 15:49 → INTOOBSV 21:48 → MEDSURG 21:48
PROVIDERS: ADMIT Emergency Medicine; ATTEND Emergency Medicine
DX: R55 Syncope and collapse (principal); W19.XXXA Unspecified fall, initial encounter; K85.90 Acute pancreatitis without necrosis or infection, unspecified; I42.9 Cardiomyopathy, unspecified; I50.9 Heart failure, unspecified; I47.1 Supraventricular tachycardia; J44.9 Chronic obstructive pulmonary disease, unspecified; I49.9 Cardiac arrhythmia, unspecified; I49.3 Ventricular premature depolarization; M19.90 Unspecified osteoarthritis, unspecified site; E78.00 Pure hypercholesterolemia, unspecified; M81.0 Age-related osteoporosis without current pathological fracture; I25.2 Old myocardial infarction; Z85.819 Personal history of malignant neoplasm of unspecified site of lip, oral cavity, and pharynx; Z87.891 Personal history of nicotine dependence
CPT/HCPCS: 85025; 80076; 82553 ×3; 80048; 81003; 84484 ×3; 85379; 71101; 71275; 70450; 94640 ×3; 94760; 93005; 93225; 93226; 93010; Q9967; 99223; 99285